=== PATIENT | female | born 1940 | race Caucasian/White ===

== ENCOUNTER → 2016-07-26 | Outpatient (CLI) | payer MEDICARE ==
[2016-07-26 12:02] LABS: EKG EKG PERFORMED
[2016-07-26 12:28] LABS: Basophils # (A) 0.1 k/uL (0-0.2); Basophils % (A) 1 %; CH 29.2; CHCM 32.4; Eosinophils # (A) 0.2 k/uL (0-0.7); Eosinophils % (A) 3 %; HCT 43.8 % (34.0-46.0); HDW 2.49; HGB 13.9 gm/dL (11.4-16.0); Luc # (Auto) 0.23; Luc % (Auto) 3; Lymphocytes # (A) 1.4 k/uL (1.0-4.8); Lymphocytes % (A) 20 %; MCH 28.8 pg (25.0-35.0); MCHC 31.7 g/dL (31.0-37.0); MCV 90.7 fL (80.0-100.0); Mean Platelet Volume 7.1; Monocytes # (A) 0.5 k/uL (0-1.0); Monocytes % (A) 7 %; Neutrophils # (A) 4.6 k/uL (1.3-7.7); Neutrophils % (A) 67 %; RBC 4.83 m/uL (3.80-5.40); RDW 14.4 % (11.5-15.5); WBC (Perox) 7.18
[2016-07-26 12:36] LABS: INR 1.1 (<1.1); Partial Thromboplastin Time 25.7 sec (22.0-30.0); Prothrombin Time 10.7 sec (9.0-12.0)
[2016-07-26 12:41] LABS: Appearance,Urine Clear (Clear); Bilirubin,Urine Negative (Negative); Glucose,Urine (UA) Negative (Negative); Ketones,Urine Negative (Negative); Leukocyte Esterase,Urine Negative (Negative); Nitrite,Urine Negative (Negative); PH, Urine 6.5 (5.0-8.0); Protein,Urine Negative (Negative); Specific Gravity,Urine 1.002 (1.001-1.035); UA Billing (MACRO vs. MICRO) CHEM; Urobilinogen,Urine <2.0 mg/dL (<2.0)
[2016-07-26 12:50] LABS: ALT 33 U/L (9-52); AST 27 U/L (14-36); Alkaline Phosphatase 81 U/L (38-126); Anion Gap 12 mmol/L; Blood Urea Nitrogen 22 mg/dL (7-17); Calcium 9.3 mg/dL (8.4-10.2); Carbon Dioxide 27 mmol/L (22-30); Chloride 103 mmol/L (98-107); Glucose 81 mg/dL (74-99); Non-African American GFR(MDRD) >60 (>60 ml/min/1.73 sqM); Potassium 4.5 mmol/L (3.5-5.1); Sodium 142 mmol/L (137-145); Total Bilirubin 0.5 mg/dL (0.2-1.3); Total Protein 7.5 g/dL (6.3-8.2)
== END | disposition home or self-care (01) ==
LOC: LABPAT 11:44
PROVIDERS: ATTEND Orthopaedic Surgery
DX: Z01.810 Encounter for preprocedural cardiovascular examination (principal); Z01.812 Encounter for preprocedural laboratory examination
CPT/HCPCS: 80053; 81003; 85025; 85610; 85730; 87070; 93005

== ENCOUNTER 2016-08-10 05:47 | Inpatient (IN) | payer MEDICARE ==
[2016-07-30 15:00] VITALS: BMI 33.7
[~2016-08-10 05:47] MED LIST: ACETAMINOPHEN TAB 500 MG TAB PO ONE; DEXAMETHASONE SOD PHOSPHATE 10 MG/ML 1 ML VIAL IV ONE; FAMOTIDINE 20 MG/2 ML VIAL IV PRN; HYDROmorphone 1 MG/ML 1 ML SYRINGE IVP PRN; LACTATED RINGERS 1,000 ML IV SCH; MELOXICAM 7.5 MG TAB PO ONE; ONDANSETRON 4 MG/2 ML VIAL IVP ONE; TRANEXAMIC ACID 1,000 MG in SODIUM CHLORIDE 0.9% 100 ML IVPB ONE; ceFAZolin 2 GM in SODIUM CHLORIDE 0.9% 100 ML IVPB ONE
[2016-08-10] MEDS ORDERED: ROPIVACAINE 246.25 MG, EPINEPHrine 0.5 MG, KETOROLAC 30 MG, cloNIDine HCL/PF 80 MCG, WA... MISCELLANE ONE ×5 (05:50)
[2016-08-10] MEDS ORDERED: LIDOCAINE 1% 20 ML VIAL (10MG/ML) FOR IV START INTRADERMA ONE (06:54)
[2016-08-10] MEDS: MIDAZOLAM 2 MG/2 ML VIAL IV PRN ×2 (07:05→07:07)
[2016-08-10] MEDS ORDERED: ePHEDrine 50 MG/ML 1 ML AMP ONE (07:24)
[2016-08-10] MEDS ORDERED: MIDAZOLAM 2 MG/2 ML VIAL ONE (07:24)
[2016-08-10] MEDS ORDERED: PROPOFOL 10 MG/ML 20 ML VIAL IV ONE (07:24)
[2016-08-10] MEDS ORDERED: SODIUM CHLORIDE 0.9% 100 ML BAG ONE (07:24)
[2016-08-10] MEDS ORDERED: TRANEXAMIC ACID 1,000 MG/10 ML VIAL ONE (07:24)
[2016-08-10] MEDS ORDERED: fentaNYL (PF) 50 MCG/ML 2 ML AMP ONE (07:24)
[2016-08-10] MEDS ORDERED: ceFAZolin 3,000 MG in SODIUM CHLORIDE 0.9% IRRIGATIO 3,000 ML IRRIGATION ONE (08:02)
[2016-08-10] MEDS ORDERED: LACTATED RINGERS 1,000 ML IV ONE (08:30)
[2016-08-10] MEDS ORDERED: ROPIVACAINE 1,100 MG, SODIUM CHLORIDE 0.9% 330 ML MISCELLANE PRN ×2 (09:00)
--- NOTE | 2016-08-10 09:02 | P.ONQ ---
Anesthesiology Proc Note - PNB - Peripheral Nerve Block Performed Right Adductor Canal Indication: Acute Post-Operative Pain, Requested by physician (Mat Greene) Sedation Type: Sedate with meaningful contact maintained Preparation: Sterile Dressing Position: Supine Catheter: Indwelling Needle Types: On-Q Needle Size: 100mm (4") Needle Gauge: 20 Technique: Ultrasound Injectate: 0.5% Ropivacaine (see comment for volume) (20cc) Blood Aspirated: No Pain Paresthesia on Injection Noted: No Resistance on Injection: Normal Events: Uneventful and Well Tolerated
--- NOTE | 2016-08-10 09:05 | P.OP ---
Date of Procedure: 08/10/16 Preoperative Diagnosis: Severe osteoarthritis right knee Postoperative Diagnosis: Severe osteoarthritis right knee Procedure(s) Performed: Right total knee arthroplasty Implants: Ferrari and Nephew Oxinium femoral component size 4, right Ferrari & Nephew Jacquie II right nonporous tibial baseplate size 3 Ferrari & Nephew size 11 mm Legion XLPE high flexion articular insert, size 3-4 Ferrari & Nephew Jacquie II resurfacing patellar component, 32 mm All components were cemented using Kevan bone cement.. The articulation is ceramic on polyethylene. Anesthesia: spinal Surgeon: Mat Greene Bark Spudder #1: Christi Diallo Estimated Blood Loss (ml): 50 Pathology: other (Bone and cartilage) Condition: stable Disposition: PACU Indications for Procedure: After failure of conservative treatment we discussed the surgical and nonsurgical treatment options at length. Patient wishes to proceed with a total knee arthroplasty. Complications specific to this procedure were discussed at length, including but not limited to infection, bleeding, stiffness , and nerve injury. Patient is aware of all these complications and informed consent was obtained Operative Findings: The operative findings are consistent with severe osteoarthritis of the right knee Description of Procedure: Patient was seen in the preoperative area consent was reviewed and operative site was marked with a skin marker. An adductor canal pain catheter was placed by anesthesia in the preoperative area. Patient was then brought to the operating room and given preoperative antibiotics intravenously. A spinal anesthetic was administered by the anesthesia department. A Mondragon catheter was then placed by the nursing staff. A tourniquet was placed on the upper thigh and the lower extremity was prepped and draped in usual sterile fashion. A gram of transexamic acid was given. A universal timeout was then performed which confirmed the patient's name, surgical site, ALLERGIES, and consent. The lower extremity was then exsanguinated and tourniquet was inflated to 250 mmHg. A standard and anterior midline approach to the knee was performed. The skin and subcutaneous tissue was dissected down to the patellar tendon. A medial parapatellar arthrotomy was then performed. The knee was then extended, the patellar was everted, and the knee was again flexed. Anterior horns of both menisci were excised, and a release was performed to the posterior medial aspect of the knee. On gross visual inspection, there was complete loss of articular cartilage in the medial and patellofemoral joint spaces. There was also significant cartilage damage in the lateral compartment. There were multiple periarticular osteophytes which were then removed with a Ronguer. The femoral canal was then opened with the appropriate drill, and the intramedullary femoral cutting guide was then placed and set for 4 of valgus. The distal femoral cutting block was then pinned in place, and the distal femur was then cut. The cutting block was then removed and the cut was checked for flatness. Next, the sizing guide was then placed and set for 3 external rotation based off of the epicondylar axis and Whitesides line. After the femur was sized, the appropriate 4-in-1 cutting block was then pinned in place. The anterior condyles were cut without notching. The posterior and chamfer cuts were performed while protecting the collateral ligaments. The cutting block was then removed, and the femoral canal was plugged with autologous bone. Attention was then directed to the tibia. The remaining ACL was removed with a Ronguer, and the tibia was then gently subluxed forward with a large bent knee retractor. Any remaining menisci was excised. The posterior lateral corner was cauterized in order to cauterize the lateral geniculate artery. The extra medullary tibial cutting guide was then placed, set for the appropriate rotation , slope, and depth of resection. The proximal tibia cutting guide was then pinned in place. Proximal tibia was then cut and sized. Next trials were then placed with the appropriate-sized insert. The knee was able to fully extend and flex to 130 and was stable throughout all range of motion. The knee was then extended, patella everted. Patella was then measured, and then using an osteotomy guide, the patella was cut at the appropriate level. The patella was then measured and drilled and the patella trial was then placed. The knee was then taken through range of motion with the patella trial and the patella tracked normally. The knee was then extended patella trial was then removed and the patella was everted. Knee was then flexed and lug holes were drilled through the femoral trial and the femoral trial was then removed. The tibial was then exposed, and the tibial broach guide was then pinned in place after it was set for the appropriate rotation to allow for the most coverage without overhang. The tibia was then reamed and broached. The cut surfaces of bone were then irrigated with pulsatile lavage. The posterior structures were injected with the ropivacaine solution. The knee was also irrigated with Irrisept solution. The components were then opened, the cement was mixed, and the components were then cemented in place. The cement was allowed to harden with the knee in full extension. While the cement was hardening, the remaining soft tissues were then injected with a ropivacaine solution, which consisted of 246.25 mg of ropivacaine, 0.5 mg of epinephrine, 30 mg of Toradol, 80 g of clonidine, and 48.45 mL of sterile water, for a total of 100 mL of fluid injected. After the cemented hardened. The tourniquet was released, and hemostasis was obtained. A second gram of transexamic acid was given. The knee was again irrigated. The knee was again taken through range of motion and found to be stable throughout all range of motion of 0-130 , and the patella tracked normally. The fascia was then closed with #2 strata fix suture. The subcutaneous tissue was closed with 3-0 Vicryl and 3-0 strata fix. Dermabond tape was used for the skin and placed with the knee in flexion. The patient was placed in a sterile dressing. Patient was then transferred to recovery room in stable condition. The malt specifications control assistant MERCEDES Petit was required due the complexity surgery and the need for a skilled assisted living assistant. She assisted in positioning, draping , retraction, and closure of the wound.
[2016-08-10] MEDS ORDERED: hydrOXYzine PAMOATE 25 MG CAP PO PRN (09:16)
[2016-08-10] MEDS ORDERED: BISACODYL 10 MG SUPP RECTAL PRN (09:16)
[2016-08-10] MEDS ORDERED: MAGNESIUM HYDROXIDE 2,400 MG/10 ML CUP PO PRN (09:16)
[2016-08-10] MEDS ORDERED: NALOXONE 0.4 MG/ML 1 ML VIAL IV PRN (09:16)
[2016-08-10] MEDS ORDERED: ONDANSETRON 4 MG/2 ML VIAL IVP PRN (09:16)
[2016-08-10] MEDS ORDERED: DIAZEPAM 5 MG TAB PO PRN ×2 (09:16)
[2016-08-10] MEDS ORDERED: HYDROmorphone 1 MG/ML 1 ML SYRINGE IVP PRN ×3 (09:16)
--- NOTE | 2016-08-10 10:15 | XR ---
EXAMINATION TYPE: XR knee limited RT DATE OF EXAM: 08/10/2016 10:07 AM COMPARISON: NONE HISTORY: Postop knee replacement TECHNIQUE: 2 views right knee FINDINGS: No acute fractures are evident post tibial and femoral component placement. Postsurgical ch anges are within the soft tissues. IMPRESSION: 1. No acute fractures post right knee replacement.
[2016-08-10] MEDS: traMADol 50 MG TAB PO PRN (11:57)
[2016-08-10] MEDS: SODIUM CHLORIDE 0.9% 1,000 ML IV SCH (11:59)
--- NOTE | 2016-08-10 13:28 | P.CONS ---
History of Present Illness - Reason for Consult Consult date: 08/10/16 Medical management - History of Present Illness This is a 75-year-old female one of Dr. Mark Vo with a previous medical history significant for hypertension and hypertensive cardiovascular disease, hypothyroidism, history of SVT post-ablation back in 2005, history of breast cancer status post left mastectomy back in 2001, patient underwent left total knee arthroplasty by Dr. Greene in March 2016. Patient is back and underwent a right knee total arthroplasty with Dr. Greene. Patient denies any chest pain, shortness of breath, she has no abdominal pain, nausea, vomiting, she has a peripheral nerve block in her left lower extremity. Review of Systems All systems: negative Constitutional: Denies chills, Denies fever Eyes: denies blurred vision, denies pain Ears, nose, mouth and throat: Denies headache, Denies sore throat Cardiovascular: Denies chest pain, Denies shortness of breath Respiratory: Denies cough Gastrointestinal: Denies abdominal pain, Denies diarrhea, Denies nausea, Denies vomiting Genitourinary: Denies dysuria, Denies hematuria Musculoskeletal: Denies myalgias Integumentary: Denies pruritus, Denies rash Neurological: Denies numbness, Denies weakness Psychiatric: Denies anxiety, Denies depression Endocrine: Denies fatigue, Denies weight change Past Medical History Past Medical History: Asthma, Cancer, Hypertension, Thyroid Disorder Additional Past Medical History / Comment(s): current sinus infection tx, hypothyroid,lt breast CA-no radiation or chemo,intermittent rapid heart rate-no problems since cardiac ablation 2005,urinary leakage History of Any Multi-Drug Resistant Organisms: None Reported Past Surgical History: Back Surgery, Cardiac Ablation, Section, Joint Replacement Additional Past Surgical History / Comment(s): lt mastectomy,3 ,fusion lower back,total lt knee Past Anesthesia/Blood Transfusion Reactions: Family History of Problems w/ Anesthesia, Motion Sickness Additional Past Anesthesia/Blood Transfusion Reaction / Comm: mother and sister have PONV,no hx blood transfusion Past Psychological History: No Psychological Hx Reported Smoking Status: Never smoker Past Alcohol Use History: None Reported Past Drug Use History: None Reported - Past Family History Mother Family Medical History: Congestive Heart Failure (CHF), Coronary Artery Disease (CAD), Diabetes Mellitus Additional Family Medical History / Comment(s): Mother at age 86 from diabetes, coronary artery disease and congestive heart failure. Father Family Medical History: Coronary Artery Disease (CAD), Myocardial Infarction (DE ) Additional Family Medical History / Comment(s): Father at age 73 from myocardial infarction. Brother(s) Family Medical History: No Reported History Additional Family Medical History / Comment(s): Patient has 1 brother with no major medical problems. Sister(s) Family Medical History: Diabetes Mellitus Additional Family Medical History / Comment(s): Patient has 3 sisters. One is prediabetic, second one has gastroparesis and third one is diagnosed with Mni re's disease. Son(s) Family Medical History: No Reported History Additional Family Medical History / Comment(s): She has 2 sons with no major medical problems. Daughter(s) Family Medical History: No Reported History Additional Family Medical History / Comment(s): Patient has one daughter with no major medical problems. Medications and Allergies Home Medications Medication Instructions Recorded Confirmed Type Aspirin EC [Ecotrin Low Dose] 81 mg PO HS 03/16/16 08/10/16 History Calcium + Magnesium 1 tab PO DAILY 03/16/16 08/10/16 History Cholecalciferol [Vitamin D3] 1,000 unit PO DAILY 03/16/16 08/10/16 History Levothyroxine Sodium [Synthroid] 100 mcg PO QAM 03/16/16 08/10/16 History Melatonin 5 mg PO HS 03/16/16 08/10/16 History Multivits-Min/Iron/FA/Lutein 1 tab PO DAILY 03/16/16 08/10/16 History [Centrum Silver Women Tablet] Naproxen Sodium [Aleve] 440 mg PO Q12HR 03/16/16 08/10/16 History amLODIPine [Norvasc] 2.5 mg PO BID 03/16/16 08/10/16 History Sennosides-Docusate Sodium 1 tab PO DAILY 07/30/16 08/10/16 History [Senokot-S] traMADol HCL [Ultram] 50 mg PO Q6HR PRN 07/30/16 08/10/16 History Allergies Allergy/AdvReac Type Severity Reaction Status Date / Time amoxicillin trihydrate AdvReac Nausea & Verified 07/30/16 14:44 [From Augmentin] Vomiting hydrocodone [From [place]] AdvReac Nausea & Verified 07/30/16 14:45 Vomiting potassium clavulanate AdvReac Nausea & Verified 07/30/16 14:44 [From Augmentin] Vomiting Frowqnc-Cpr-Ayt Reductase AdvReac muscle Verified 07/30/16 14:45 Inhibitor pain-states "caused muscle loss" Physical Exam Vitals: Vital Signs Temp Pulse Pulse Resp BP BP Pulse Ox 08/10/16 10:15 76 16 122/57 100 08/10/16 10:00 78 16 128/72 97 08/10/16 09:45 79 16 127/62 98 08/10/16 09:30 81 16 123/59 97 08/10/16 09:16 97.4 F L 80 16 117/56 99 08/10/16 06:23 97.7 F 80 16 149/68 98 Intake and Output 08/09/16 08/10/16 08/10/16 22:59 06:59 14:59 Intake Total 100 1651 Output Total 475 Balance 100 1176 Intake: IV 100 1651 Output: Urine 425 Estimated Blood Loss 50 General appearance: no acute distress, thin - EENT Eyes: Reports anicteric sclerae, Reports PERRLA, Reports normal apperance, Denies ptosis, Denies scleral icterus ENT: Reports hearing grossly normal, Reports normal oropharynx, Denies thrush Ears: bilateral: normal - Neck Neck: Reports normal ROM, Denies rigidity, Denies stridor Carotids: bilateral: upstroke normal Thyroid: bilateral: normal size - Respiratory Respiratory: bilateral: diminished, negative: dullness, rales, rhonchi, wheezing , prolonged expiration, prolonged inspiration - Cardiovascular Rhythm: regular Heart sounds: normal: S1, S2 Abnormal Heart Sounds: Denies systolic murmur, Denies S3 Gallop, Denies S4 Gallop - Gastrointestinal General gastrointestinal: Reports normal bowel sounds, Reports soft, Denies tenderness, Denies umbilical hernia - Integumentary Integumentary: Reports normal, Reports normal turgor - Neurologic Neurologic: CNII-XII intact - Musculoskeletal Musculoskeletal: Reports strength equal bilaterally. Large dressing intact to the right knee. Pain pump is in place to the right knee. - Psychiatric Psychiatric: Reports A&O x's 3, Reports appropriate affect, Reports intact judgment & insight Results CBC & Chem 7: 07/26/16 12:00 07/26/16 11:56 Assessment and Plan Plan: 1. Status post right total knee arthroplasty. Patient was instructed about the usage of incentive spirometer to reduce the incidence of atelectasis and hospital-acquired pneumonia, continue with physical therapy, continue current pain management as outlined by orthopedic surgery, continue current deep venous thrombus prophylaxis aspirin 325 mg orally twice every day for the next 30 days. 2. Hypertension and hypertensive cardiovascular disease. Continue amlodipine 2.5 mg orally twice every day. 3. Hypothyroidism. Continue Synthroid 100 g orally once every day. 4. History of osteoarthritis. Continue current pain management with [place]. 5. History of SVT status post cardiac ablation 2005. 6. History of breast cancer status post left mastectomy back in 2001. 7. DVT prophylaxis. Continue aspirin 325 mg orally twice every day for 30 days. 8[address] you Dr[address] Greene for allowing us to participate in the care of your patient, we will follow the patient along with you. Impression and plan of care have been directed as dictated by the signing physician. Roseanne Edmonds nurse practitioner acting as scribe for signing physician. Time with Patient: Greater than 30
[2016-08-10] MEDS: ceFAZolin 2 GM in SODIUM CHLORIDE 0.9% 100 ML IVPB SCH ×2 (16:02→23:25)
[2016-08-10] MEDS: ASPIRIN 325 MG TAB PO SCH (20:26)
[2016-08-10] MEDS: SENNOSIDES-DOCUSATE SODIUM 1 EACH TAB PO SCH (20:26)
[2016-08-10] MEDS: MELATONIN 5 MG TABLET PO SCH (21:19)
[2016-08-10] MEDS: amLODIPine 2.5 MG TAB PO SCH (21:19)
[2016-08-11] MEDS: SODIUM CHLORIDE 0.9% 1,000 ML IV SCH ×2 (00:19→12:16)
[2016-08-11] MEDS: LEVOTHYROXINE 100 MCG TAB PO SCH (05:36)
[2016-08-11] MEDS: traMADol 50 MG TAB PO PRN ×3 (05:36→17:50)
[2016-08-11 07:22] LABS: Basophils % (A) 0 %; CH 29.1; CHCM 31.9; Eosinophils % (A) 0 %; HCT 35.8 % (34.0-46.0); HDW 2.44; HGB 11.3 gm/dL (11.4-16.0); Luc # (Auto) 0.16; Luc % (Auto) 1; Lymphocytes # (A) 1.3 k/uL (1.0-4.8); Lymphocytes % (A) 11 %; MCH 28.9 pg (25.0-35.0); MCHC 31.5 g/dL (31.0-37.0); MCV 91.6 fL (80.0-100.0); Mean Platelet Volume 7.4; Monocytes # (A) 0.7 k/uL (0-1.0); Monocytes % (A) 6 %; Neutrophils # (A) 9.6 k/uL (1.3-7.7); Neutrophils % (A) 82 %; RDW 14.4 % (11.5-15.5); WBC 11.7 k/uL (3.8-10.6); WBC (Perox) 12.76
[2016-08-11] MEDS: MELOXICAM 7.5 MG TAB PO SCH (08:05)
[2016-08-11] MEDS: amLODIPine 2.5 MG TAB PO SCH ×2 (08:05→20:13)
[2016-08-11] MEDS: ASPIRIN 325 MG TAB PO SCH ×2 (08:05→20:13)
--- NOTE | 2016-08-11 08:22 | P.PN ---
Subjective Principal diagnosis: Status post right total knee arthroplasty This is a pleasant 75-year-old female who is status post right total knee arthroplasty. Today's postoperative day #1. The patient is seen and evaluated at bedside with Dr. Mat Greene. She has been up with physical therapy. Her pain is under fair control. She has no new complaints at this time. Objective - Vital Signs Vital signs: Vital Signs Temp 97.6 F 08/11/16 07:00 Pulse 70 08/11/16 07:00 Resp 17 08/11/16 07:00 BP 124/61 08/11/16 07:00 Pulse Ox 93 L 08/11/16 07:00 Intake & Output 08/10/16 08/11/16 08/11/16 18:59 06:59 18:59 Intake Total 2251 775 Output Total 1575 1000 Balance 676 -225 Weight 75.75 kg Intake: IV 1651 775 Sodium Chloride 0.9% 1, 675 000 ml @ 75 mls/hr IV . [id number] [facility] Rx#:[id number] ceFAZolin 2 gm In Sodium 100 Chloride 0.9% 100 ml @ 100 mls/hr IVPB ONCE ONE Rx#:[id number] Oral 600 Output: Urine 1525 1000 Uretheral (Mondragon) 1100 1000 Estimated Blood Loss 50 Other: Voiding Method Indwelling Catheter Indwelling Catheter Indwelling Catheter - Exam The patient does not appear in acute distress. Alert and orientated 3. Dressing is clean dry and intact. Incision appears fine with no erythema or active drainage. Calf is soft and nontender. Good foot and ankle motion without difficulty. Sensation and circulatory status is intact. - Labs CBC & Chem 7: 08/11/16 06:38 07/26/16 11:56 Labs: Abnormal Lab Results - Last 24 Hours (Table) 08/11/16 Range/Units 06:38 WBC 11.7 H (3.8-10.6) k/uL Hgb 11.3 L (11.4-16.0) gm/dL Neutrophils # 9.6 H (1.3-7.7) k/uL Assessment and Plan (1) Primary osteoarthritis of right knee Status: Acute (2) Status post right knee replacement Status: Acute Plan: 1. Continue with routine postoperative care. 2. Anticoagulation with aspirin. 3. Physical therapy and CPM today. 4. Appreciate input from medicine. 5. Anticipate discharge to home with home care likely tomorrow.
--- NOTE | 2016-08-11 09:19 | P.PN ---
Progress Note - Text The patient is status post right adductor canal catheter placement. The catheter was placed for postoperative pain control, status post total right arthroplasty. Ropivacaine 0.2% is infusing at 8 mLs per hour. The patient has no complaints of right lower extremity numbness or weakness. Patient's VAS score is 0-1 -10. Assessment: Patient's adductor canal catheter is in place and working appropriately. Plan: continue infusion and adjust it as needed.
--- NOTE | 2016-08-11 14:16 | P.PN ---
Subjective This is a 75-year-old female one of Dr. Mark Vo with a previous medical history significant for hypertension and hypertensive cardiovascular disease, hypothyroidism, history of SVT post-ablation back in 2005, history of breast cancer status post left mastectomy back in 2001, patient underwent left total knee arthroplasty by Dr. Greene in March 2016. Patient is back and underwent a right knee total arthroplasty with Dr. Greene. Patient denies any chest pain, shortness of breath, she has no abdominal pain, nausea, vomiting, she has a peripheral nerve block in her left lower extremity. 08/11: Patient denies any new complaints. Her pain is controlled. No nausea or vomiting. On aspirin 325 mg twice daily for DVT prophylaxis. She is anticipating discharge home tomorrow. Objective - Vital Signs Vital signs: Vital Signs Temp 97.6 F 08/11/16 07:00 Pulse 70 08/11/16 07:00 Resp 17 08/11/16 07:00 BP 124/61 08/11/16 07:00 Pulse Ox 93 L 08/11/16 07:00 Intake & Output 08/10/16 08/11/16 08/11/16 18:59 06:59 18:59 Intake Total 2251 775 Output Total 1575 1000 500 Balance 676 -225 -500 Weight 75.75 kg Intake: IV 1651 775 Sodium Chloride 0.9% 1, 675 000 ml @ 75 mls/hr IV . [id number] [facility] Rx#:[id number] ceFAZolin 2 gm In Sodium 100 Chloride 0.9% 100 ml @ 100 mls/hr IVPB ONCE ONE Rx#:[id number] Oral 600 Output: Urine 1525 1000 500 Uretheral (Mondragon) 1100 1000 500 Estimated Blood Loss 50 Other: Voiding Method Indwelling Catheter Indwelling Catheter Indwelling Catheter - Exam General appearance: no acute distress, thin - EENT Eyes: Reports anicteric sclerae, Reports PERRLA, Reports normal apperance, Denies ptosis, Denies scleral icterus ENT: Reports hearing grossly normal, Reports normal oropharynx, Denies thrush Ears: bilateral: normal - Neck Neck: Reports normal ROM, Denies rigidity, Denies stridor Carotids: bilateral: upstroke normal Thyroid: bilateral: normal size - Respiratory Respiratory: bilateral: diminished, negative: dullness, rales, rhonchi, wheezing , prolonged expiration, prolonged inspiration - Cardiovascular Rhythm: regular Heart sounds: normal: S1, S2 Abnormal Heart Sounds: Denies systolic murmur, Denies S3 Gallop, Denies S4 Gallop - Gastrointestinal General gastrointestinal: Reports normal bowel sounds, Reports soft, Denies tenderness, Denies umbilical hernia - Integumentary Integumentary: Reports normal, Reports normal turgor - Neurologic Neurologic: CNII-XII intact - Musculoskeletal Musculoskeletal: Reports strength equal bilaterally. Large dressing intact to the right knee. Pain pump is in place to the right knee. - Psychiatric Psychiatric: Reports A&O x's 3, Reports appropriate affect, Reports intact judgment & insight - Labs CBC & Chem 7: 08/11/16 06:38 07/26/16 11:56 Labs: Abnormal Lab Results - Last 24 Hours (Table) 08/11/16 Range/Units 06:38 WBC 11.7 H (3.8-10.6) k/uL Hgb 11.3 L (11.4-16.0) gm/dL Neutrophils # 9.6 H (1.3-7.7) k/uL Assessment and Plan Plan: 1. Status post right total knee arthroplasty. Patient was instructed about the usage of incentive spirometer to reduce the incidence of atelectasis and hospital-acquired pneumonia, continue with physical therapy, continue current pain management as outlined by orthopedic surgery, continue current deep venous thrombus prophylaxis aspirin 325 mg orally twice every day for the next 30 days. 2. Hypertension and hypertensive cardiovascular disease. Continue amlodipine 2.5 mg orally twice every day. 3. Hypothyroidism. Continue Synthroid 100 g orally once every day. 4. History of osteoarthritis. Continue current pain management with [place]. 5. History of SVT status post cardiac ablation 2005. 6. History of breast cancer status post left mastectomy back in 2001. 7. DVT prophylaxis. Continue aspirin 325 mg orally twice every day for 30 days[address] 8[address] you [address] Greene for allowing us to participate in the care of your patient, we will follow the patient along with you. Discharge plan: Home tomorrow Impression and plan of care have been directed as dictated by the signing physician. Roseanne Edmonds nurse practitioner acting as scribe for signing physician. Time with Patient: Greater than 30
[2016-08-11 15:31] VITALS: RESP 16
[2016-08-11] MEDS: ACETAMINOPHEN TAB 325 MG TAB PO PRN (16:00)
[2016-08-11] MEDS: SENNOSIDES-DOCUSATE SODIUM 1 EACH TAB PO SCH (20:13)
[2016-08-11] MEDS: MELATONIN 5 MG TABLET PO SCH (20:13)
[2016-08-12] MEDS: SODIUM CHLORIDE 0.9% 1,000 ML IV SCH (00:36)
[2016-08-12] MEDS: ACETAMINOPHEN TAB 325 MG TAB PO PRN (04:34)
[2016-08-12] MEDS: traMADol 50 MG TAB PO PRN ×3 (05:47→12:52)
[2016-08-12] MEDS: LEVOTHYROXINE 100 MCG TAB PO SCH (05:47)
[2016-08-12 08:04] VITALS: BP 145/67; PULSE 90; TEMP 97.9
[2016-08-12] MEDS: amLODIPine 2.5 MG TAB PO SCH (08:06)
[2016-08-12] MEDS: MELOXICAM 7.5 MG TAB PO SCH (08:07)
[2016-08-12] MEDS: ASPIRIN 325 MG TAB PO SCH (08:07)
--- NOTE | 2016-08-12 08:27 | P.DS ---
Providers Date of admission: 08/10/16 05:47 Expected date of discharge: 08/12/16 Attending physician: Mat Greene Consults: 08/10/16 09:16 Consult Physician Routine Consulting Provider: Julito Beatty Reason/Comments: medical management Do you want consulting provider notified?: Yes Primary care physician: Mark Vo - Discharge Diagnosis(es) (1) Osteoarthritis of right knee Current Visit: Yes Status: Acute (2) Status post right knee replacement Current Visit: Yes Status: Acute Hospital Course: This is a pleasant 75-year-old female last seen in our office with complaints of right knee pain. Patient has known history of degenerative arthritis of the right knee and presented to discuss options. After discussion and consideration , patient elected to proceed with a total knee arthroplasty of the right knee. The patient was seen preoperatively and medically cleared for surgery by Dr. Mark Vo. The patient was admitted to [facility] and underwent right total knee arthroplasty on 08/10/[address] Mat Greene. The procedure was performed without complications or sequelae. The patient has done well postoperatively. The patient was seen and evaluated at bedside today and denies any new complaints. Pain is reasonably controlled. Dressing is clean dry and intact. Incision looks fine with no erythema or active drainage. Calf is soft and nontender. The patient has full foot and ankle motion without difficulty. Patient's right lower extremity is neurovascular intact. Patient is orthopedically stable for discharge to home today. Pertinent Studies: Laboratory Tests 08/11/16 06:38 WBC 11.7 H RBC 3.90 Hgb 11.3 L Hct 35.8 Patient Condition at Discharge: Stable Plan - Discharge Summary New Discharge Prescriptions: Aspirin 325 mg PO BID #60 tab Sennosides-Docusate Sodium [Senokot-S] 2 tab PO DAILY #60 tablet traMADol HCl [Ultram] 50 - 100 mg PO Q4-6H PRN #90 tab PRN Reason: Pain Discharge Medication List Aspirin EC [Ecotrin Low Dose] 81 mg PO HS 03/16/16 [History] Calcium + Magnesium 1 tab PO DAILY 03/16/16 [History] Cholecalciferol [Vitamin D3] 1,000 unit PO DAILY 03/16/16 [History] Levothyroxine Sodium [Synthroid] 100 mcg PO QAM 03/16/16 [History] Melatonin 5 mg PO HS 03/16/16 [History] Multivits-Min/Iron/FA/Lutein [Centrum Silver Women Tablet] 1 tab PO DAILY [History] Naproxen Sodium [Aleve] 440 mg PO Q12HR 03/16/16 [History] amLODIPine [Norvasc] 2.5 mg PO BID 03/16/16 [History] Sennosides-Docusate Sodium [Senokot-S] 1 tab PO DAILY 07/30/16 [History] traMADol HCL [Ultram] 50 mg PO Q6HR PRN 07/30/16 [History] Aspirin 325 mg PO BID #60 tab 08/11/16 [Rx] Sennosides-Docusate Sodium [Senokot-S] 2 tab PO DAILY #60 tablet 08/11/16 [Rx] traMADol HCl [Ultram] 50 - 100 mg PO Q4-6H PRN #90 tab 08/12/16 [Rx] Follow up Appointment(s)/Referral(s): Mat Greene DO [Doctor of Osteopathic Medicine] - 2 Weeks Ambulatory/Diagnostic Orders: Continuous Passive Motion (CPM) Machine [DME.AMB1] Location: Determined By Patient Activity/Diet/Wound Care/Special Instructions: Walker - has at home CPM - No CPM Home Care - No home care Weightbearing as tolerated with a walker CPM daily Daily dressing changes, keep incision clean and dry [facility] with questions or concerns [phone] Discharge Disposition: HOME WITH HOME HEALTH SERVICES
--- NOTE | 2016-08-12 11:04 | P.PN ---
Progress Note - Text 0715 anesthesia POD 2. Patient is status post right TKR under spinal anesthesia with a right adductor canal catheter placed for postoperative pain relief. 0.2% ropivacaine is infusing at 8 mL per hour and the patient's VAS is 2, 7. Catheter site looks good dressing is intact and dry. We'll continue as before.
--- NOTE | 2016-08-12 12:42 | P.PN ---
Subjective This is a 75-year-old female one of Dr. Mark Vo with a previous medical history significant for hypertension and hypertensive cardiovascular disease, hypothyroidism, history of SVT post-ablation back in 2005, history of breast cancer status post left mastectomy back in 2001, patient underwent left total knee arthroplasty by Dr. Greene in March 2016. Patient is back and underwent a right knee total arthroplasty with Dr. Greene. Patient denies any chest pain, shortness of breath, she has no abdominal pain, nausea, vomiting, she has a peripheral nerve block in her left lower extremity. 08/11: Patient denies any new complaints. Her pain is controlled. No nausea or vomiting. On aspirin 325 mg twice daily for DVT prophylaxis. She is anticipating discharge home tomorrow. 08/12: Patient is scheduled for discharge home today. She is doing well with PT. Objective - Vital Signs Vital signs: Vital Signs Temp 97.9 F 08/12/16 07:00 Pulse 90 08/12/16 08:00 Resp 16 08/12/16 08:00 BP 145/67 08/12/16 07:00 Pulse Ox 92 L 08/12/16 07:00 Intake & Output 08/11/16 08/12/16 08/12/16 18:59 06:59 18:59 Intake Total 720 100 Output Total 800 300 Balance -80 100 -300 Weight 75.75 kg Intake: Oral 720 100 Output: Urine 800 300 Uretheral ([place]) 500 Other: Voiding Method Indwelling Catheter Toilet Toilet # Voids 1 1 - Exam General appearance: no acute distress, thin - EENT Eyes: Reports anicteric sclerae, Reports PERRLA, Reports normal apperance, Denies ptosis, Denies scleral icterus ENT: Reports hearing grossly normal, Reports normal oropharynx, Denies thrush Ears: bilateral: normal - Neck Neck: Reports normal ROM, Denies rigidity, Denies stridor Carotids: bilateral: upstroke normal Thyroid: bilateral: normal size - Respiratory Respiratory: bilateral: diminished, negative: dullness, rales, rhonchi, wheezing , prolonged expiration, prolonged inspiration - Cardiovascular Rhythm: regular Heart sounds: normal: S1, S2 Abnormal Heart Sounds: Denies systolic murmur, Denies S3 Gallop, Denies S4 Gallop - Gastrointestinal General gastrointestinal: Reports normal bowel sounds, Reports soft, Denies tenderness, Denies umbilical hernia - Integumentary Integumentary: Reports normal, Reports normal turgor - Neurologic Neurologic: CNII-XII intact - Musculoskeletal Musculoskeletal: Reports strength equal bilaterally. Large dressing intact to the right knee. Pain pump is in place to the right knee. - Psychiatric Psychiatric: Reports A&O x's 3, Reports appropriate affect, Reports intact judgment & insight - Labs CBC & Chem 7: 08/11/16 06:38 07/26/16 11:56 Assessment and Plan Plan: 1. Status post right total knee arthroplasty. Patient was instructed about the usage of incentive spirometer to reduce the incidence of atelectasis and hospital-acquired pneumonia, continue with physical therapy, continue current pain management as outlined by orthopedic surgery, continue current deep venous thrombus prophylaxis aspirin 325 mg orally twice every day for the next 30 days. 2. Hypertension and hypertensive cardiovascular disease. Continue amlodipine 2.5 mg orally twice every day. 3. Hypothyroidism. Continue Synthroid 100 g orally once every day. 4. History of osteoarthritis. Continue current pain management with [facility]. 5. History of SVT status post cardiac ablation 2005. 6. History of breast cancer status post left mastectomy back in 2001. 7. DVT prophylaxis. Continue aspirin 325 mg orally twice every day for 30 days[address] you [address] Greene for allowing us to participate in the care of your patient, we will follow the patient along with you. Discharge plan: Home Impression and plan of care have been directed as dictated by the signing physician. Roseanne Edmonds nurse practitioner acting as scribe for signing physician. CC: Dr. Mark Vo Time with Patient: Greater than 30
== END 2016-08-12 14:10 | disposition home health service (06) | DRG 470 ==
LOC: 2ORMAIN 05:47 → 3SUR 09:16
PROVIDERS: ADMIT Orthopaedic Surgery; ATTEND Orthopaedic Surgery
PROC: 0SRC0J9 Replacement of Right Knee Joint with Synthetic Substitute, Cemented, Open Approach (ICD-10-PCS; principal; 2016-08-10 07:30)
DX: M17.11 Unilateral primary osteoarthritis, right knee (principal); I11.9 Hypertensive heart disease without heart failure; E03.9 Hypothyroidism, unspecified; J45.909 Unspecified asthma, uncomplicated; M54.16 Radiculopathy, lumbar region; Z85.3 Personal history of malignant neoplasm of breast; Z96.652 Presence of left artificial knee joint; Z79.82 Long term (current) use of aspirin; Z79.899 Other long term (current) drug therapy; Z88.5 Allergy status to narcotic agent; Z88.0 Allergy status to penicillin; Z88.8 Allergy status to other drugs, medicaments and biological substances; Z82.49 Family history of ischemic heart disease and other diseases of the circulatory system
CPT/HCPCS: 85025; 88300; 88305; 88311

== ENCOUNTER → 2017-03-16 | Outpatient (CLI) | payer MEDICARE ==
--- NOTE | 2017-03-17 07:42 | MM ---
Reason for exam: additional evaluation requested from prior study. Last mammogram was performed 1 year ago. History: Patient is postmenopausal, has history of breast cancer at age 61, and had first child at age 31. Malignant mastectomy of the left breast, September 12, 2001. Malignant stereotactic core biopsy of the left breast, August 24, 2001. Core biopsy of the left breast. Took hormonal contraceptives for 1 year 6 months beginning at age 29. Took tamoxifen for 5 years beginning at age 61. Physical Findings: Nurse did not find any significant physical abnormalities on exam. MG 3D Diag Mammo W/Cad RT CC and MLO view(s) were taken of the right breast. Prior study comparison: March 15, 2016, right breast MG 3d diag mammo w/cad RT. February 11, 2015, right breast MG diagnostic mammo RT w CAD. The breast tissue is heterogeneously dense. This may lower the sensitivity of mammography. No significant new findings when compared with previous films. These results were verbally communicated with the patient and result sheet given to the patient on 03/16/17. ASSESSMENT: Negative, BI-RAD 1 RECOMMENDATION: Follow-up diagnostic mammogram of the right breast in 1 month.
== END | disposition home or self-care (01) ==
LOC: RADMAMWWP 15:30
PROVIDERS: ATTEND Family Medicine
DX: Z08 Encounter for follow-up examination after completed treatment for malignant neoplasm (principal); Z85.3 Personal history of malignant neoplasm of breast
CPT/HCPCS: G0206; G0279

== ENCOUNTER → 2018-03-29 | Outpatient (CLI) | payer MEDICARE ==
--- NOTE | 2018-03-30 07:22 | MM ---
Reason for exam: additional evaluation requested from prior study. Last mammogram was performed 1 year ago. History: Patient is postmenopausal, has history of breast cancer at age 61, and had first child at age 31. Malignant mastectomy of the left breast, September 12, 2001. Malignant stereotactic core biopsy of the left breast, August 24, 2001. Core biopsy of the left breast. Took hormonal contraceptives for 1 year 6 months beginning at age 29. Took tamoxifen for 5 years beginning at age 61. Physical Findings: Nurse did not find any significant physical abnormalities on exam. MG 3D Diag Mammo W/Cad RT CC and MLO view(s) were taken of the right breast. Prior study comparison: March 16, 2017, right breast MG 3d diag mammo w/cad RT. March 15, 2016, right breast MG 3d diag mammo w/cad RT. There are scattered fibroglandular densities. No significant new findings when compared with previous films. These results were verbally communicated with the patient and result sheet given to the patient on 03/29/18. ASSESSMENT: Benign, BI-RAD 2 RECOMMENDATION: Follow-up diagnostic mammogram of the right breast in 1 year.
== END | disposition home or self-care (01) ==
LOC: RADMAMWWP 15:12
PROVIDERS: ATTEND Family Medicine
DX: R92.8 Other abnormal and inconclusive findings on diagnostic imaging of breast (principal); Z85.3 Personal history of malignant neoplasm of breast
CPT/HCPCS: 77065; G0279; 77061

== ENCOUNTER → 2019-04-17 | Outpatient (CLI) | payer MEDICARE ==
--- NOTE | 2019-04-18 11:42 | MM ---
Reason for exam: additional evaluation requested from prior study. Last mammogram was performed 1 year and 1 month ago. History: Patient is postmenopausal, has history of breast cancer at age 61, and had first child at age 31. Malignant mastectomy of the left breast, September 12, 2001. Malignant stereotactic core biopsy of the left breast, August 24, 2001. Core biopsy of the left breast. Took hormonal contraceptives for 1 year 6 months beginning at age 29. Took tamoxifen for 5 years beginning at age 61. Physical Findings: Nurse did not find any significant physical abnormalities on exam. MG 3D Diag Mammo W/Cad RT CC, MLO, ML, CC with magnification, and ML with magnification view(s) were taken of the right breast. Prior study comparison: March 29, 2018, right breast MG 3d diag mammo w/cad RT. March 16, 2017, right breast MG 3d diag mammo w/cad RT. There are two grouped calcifications in the upper outer right breast. These results were verbally communicated with the patient and result sheet given to the patient on 04/17/19. ASSESSMENT: Suspicious, BI-RAD 4 RECOMMENDATION: Stereotactic core biopsy of the right breast. (2 sites) Called Dr. Vo's office with mammographic findings and has scheduled an appointment for the patient for 05/17/19 at 12:[address] Molina. Biopsy scheduled for 05/24/19 at 8:00. PRELIMINARY REPORT CALLED AND FAXED TO DR. MOLINA ON 05/18/19.
== END | disposition home or self-care (01) ==
LOC: RADMAMWWP 15:21
PROVIDERS: ATTEND Family Medicine
DX: Z08 Encounter for follow-up examination after completed treatment for malignant neoplasm (principal); Z85.3 Personal history of malignant neoplasm of breast; Z90.12 Acquired absence of left breast and nipple
CPT/HCPCS: 77065; G0279; 77061

== ENCOUNTER → 2019-05-17 | Outpatient (CLI) | payer MEDICARE ==
[2019-05-17 15:12] VITALS: BP 146/73; PULSE 78; RESP 18; TEMP 97.4
--- NOTE | 2019-05-17 16:04 | P.GSHP ---
History of Present Illness H&P Date: 05/17/19 Chief Complaint: history of left breast cancer, abnormal right breast mammogram Kaia is a 78-year-old white female who presents for breast evaluation. She is seen in consultation for Dr. Mark Daly. She is status post a left mastectomy for a left breast cancer in 2001. She states the tumor was small and at that time she did not have any chemo or radiation therapy. She did take tamoxifen for 5 years. She does not feel any masses or lumps in her right breast. A mammogram performed on [id number] revealed 2 areas of calcification for which stereotactic core biopsy were recommended. These are in the upper outer quadrant region of the right breast. The patient denies nipple discharge or skin changes. She denies any pain in her breast. She has not had any surgery in the right breast. She has no history of any infection or trauma to the right breast. Family history: 1. Patient left breast cancer Hormonal history: Menarche: 10 T3P3, breast-fed no, age of first : 31 Menopause: 50 control pills: 2 years Hormones: 2 years Social history: Smoke: Negative Alcohol: Negative Drugs: Negative Social history: 1. 3 C-sections 2. Hemorrhoidectomy 3. Low back surgery fusion 4. Tumor removal from left shoulder benign 5. Nose deviated septum 6. Cardiac ablation 7. Bilateral cataract surgery 8. Bilateral knee surgery Medical history: 1. Hypertension 2. Hypothyroid - Constitutional Constitutional: Denies chills, Denies fever - EENT Comment: bilateral cataract surgery Eyes: denies blurred vision, denies pain Ears: deny: decreased hearing, tinnitus Ears, nose, mouth and throat: Denies headache, Denies sore throat - Breasts Comment: left mastectomy, right abnormal mammogram Breasts: bilateral: as per HPI - Cardiovascular Comment: cardiac ablation follows with cardiology - Respiratory Respiratory: Denies cough, Denies 7 - Gastrointestinal Gastrointestinal: Denies abdominal pain, Denies diarrhea, Denies nausea, Denies vomiting - Genitourinary (Female) Genitourinary: Denies dysuria, Denies hematuria - Menstruation Menstruation: Reports postmenopausal - Musculoskeletal Comment: arthritis, bilateral knee replacement, back surgery - Integumentary Comment: none Integumentary: Reports as per HPI - Neurological Neurological: Denies numbness, Denies weakness - Psychiatric Psychiatric: Denies anxiety, Denies depression - Endocrine Endocrine: Reports as per HPI - Hematologic/Lymphatic Comment: baby aspirin - Allergic/Immunologic Allergic/Immunologic: Reports seasonal allergies Past Medical History Past Medical History: Cancer, Hypertension Additional Past Medical History / Comment(s): hypothyroid. History of Any Multi-Drug Resistant Organisms: None Reported Past Surgical History: Back Surgery, Cardiac Ablation, Section, Joint Replacement Additional Past Surgical History / Comment(s): mastectomy Past Anesthesia/Blood Transfusion Reactions: Family History of Problems w/ Anesthesia, Motion Sickness Additional Past Anesthesia/Blood Transfusion Reaction / Comment(s): mother and sister have PONV,no hx blood transfusion Past Psychological History: No Psychological Hx Reported Smoking Status: Never smoker Past Alcohol Use History: None Reported Past Drug Use History: None Reported - Past Family History Mother Family Medical History: Congestive Heart Failure (CHF), Coronary Artery Disease (CAD), Diabetes Mellitus Additional Family Medical History / Comment(s): Mother at age 86 from diabetes, coronary artery disease and congestive heart failure. Father Family Medical History: Coronary Artery Disease (CAD), Myocardial Infarction ([place]) Additional Family Medical History / Comment(s): Father at age 73 from myocardial infarction. Brother(s) Family Medical History: No Reported History Additional Family Medical History / Comment(s): Patient has 1 brother with no major medical problems. Sister(s) Family Medical History: Diabetes Mellitus Additional Family Medical History / Comment(s): Patient has 3 sisters. One is prediabetic, second one has gastroparesis and third one is diagnosed with Mnire's disease. Son(s) Family Medical History: No Reported History Additional Family Medical History / Comment(s): She has 2 sons with no major medical problems. Daughter(s) Family Medical History: No Reported History Additional Family Medical History / Comment(s): Patient has one daughter with no major medical problems. Medications and Allergies Home Medications Medication Instructions Recorded Confirmed Type Aspirin EC [Ecotrin Low Dose] 81 mg PO HS 03/16/16 05/17/19 History Cholecalciferol [Vitamin D3] 1,000 unit PO DAILY 03/16/16 05/17/19 History Levothyroxine Sodium [Synthroid] 100 mcg PO QAM 03/16/16 05/17/19 History Melatonin 5 mg PO HS 03/16/16 05/17/19 History Multivit-Min/Iron/Folic/Lutein 1 tab PO DAILY 03/16/16 05/17/19 History [Centrum Silver Women Tablet] amLODIPine [Norvasc] 2.5 mg PO DAILY 03/16/16 05/17/19 History Allergies Allergy/AdvReac Type Severity Reaction Status Date / Time hydrocodone [From [place]] AdvReac Nausea & Verified 05/17/19 15:08 Vomiting potassium clavulanate AdvReac Nausea & Verified 05/17/19 15:08 [From Augmentin] Vomiting Eccecef-Wus-Jyu Reductase AdvReac muscle Verified 05/17/19 15:08 Inhibitor pain-states "caused muscle loss" Surgical - Exam Vital Signs Temp Pulse Resp BP Pulse Ox 97.4 F L 78 18 146/73 94 L 05/17/19 15:10 05/17/19 15:10 05/17/19 15:10 05/17/19 15:10 05/17/19 15:10 - General well developed, well nourished, no distress - Eyes normal ocular movement - ENT normal pinna, normal nares, no hearing loss, no congestion - Neck no masses, trachea midline - Respiratory normal expansion, normal respiratory effort, clear to percussion, clear to auscultation - Cardiovascular Rhythm: regular Heart Sounds: normal: S1, S2 - Abdomen Abdomen: soft, non tender, no guarding, no rigid, no rebound - Integumentary well healed scar left chest wall no recurrent cancer - Neurologic no disoriented, no combative - Musculoskeletal normal gait, normal posture - Psychiatric oriented to time, oriented to person, oriented to place, speech is normal, memory intact breast examination: Right breast: Multi-positional exam no dominant masses or nodules of concern Right axilla: No adenopathy of concern Left chest wall: No evidence of recurrent cancer Results mammogram results reviewed Assessment and Plan Assessment: impression: 1. Personal history of left breast cancer, status post mastectomy, no evidence of recurrent cancer 2. Right breast abnormal mammogram 3. Hypertension 4. Hypothyroidism Plan: 1. Stereotactic core biopsy 2 areas of concern in the right breast 2. Continued surveillance to rule out recurrent left breast cancer 3. Medical management of medical conditions I discussed with the patient the findings on her right breast mammogram. We have discussed stereotactic core biopsy including the risks and benefits and need for the biopsy. The patient understands and wishes to proceed. Cc: Dr. Mark Vo Encounter time approximately 25 minutes, 50% of time spent planning and/or counseling Time with Patient: Less than 30
== END ==
LOC: WWCWWP 14:32
PROVIDERS: ATTEND Surgery
DX: Z53.9 Procedure and treatment not carried out, unspecified reason (principal)

== ENCOUNTER → 2019-05-24 | Day surgery (SDC) | payer MEDICARE ==
[2019-05-24 07:29] VITALS: RESP 16
--- NOTE | 2019-05-24 09:05 | P.OP ---
Date of Procedure: 05/24/19 Preoperative Diagnosis: mammographic abnormality right breast two groups of calcifications upper outer right breast after review with Dr. Macias only one area is going to be sampled Postoperative Diagnosis: same Procedure(s) Performed: sterotactic core biopsy right breast Anesthesia: local Surgeon: Amaris Molina Estimated Blood Loss (ml): 1 Pathology: other (breast tissue) Condition: stable Disposition: same day Indications for Procedure: microcalcifications of concern right breast Operative Findings: microcalcifications right breast Description of Procedure: the patient is a 78-year-old white female who had a mammographic abnormality revealing microcalcifications of the right breast. 2 areas were initially seen however after review with the radiologist only 1 areas going to be sample today. The patient understands the risks and benefits and wishes to proceed. The patient was taken to the stereotactic core biopsy room and positioned on the stereotactic biopsy table. A aircraft engine mechanic overhaul film was obtained which revealed the calcifications of concern. The breast was prepped using Betadine. 20 mL of 1% lidocaine was used to anesthetize the area of concern. A CC from above approach was utilized. A 9-gauge vacuum-assisted core rotating biopsy needle was driven to the correct coordinates. The needle was fired. Radiograph revealed the needle was in the correct location. 19 core biopsy specimens were obtained. Radiograph of the specimen revealed calcification in the specimen. A secure marilin Top-bowling ball grader and marker was placed. The patient tolerated procedure in stable condition. Specimen sent to pathology. The patient will follow with Dr. Jason in approximately 10 days.
[2019-05-24 09:12] VITALS: BP 112/67; PULSE 56; TEMP 97.4
--- NOTE | 2019-05-24 10:22 | MM ---
EXAMINATION TYPE: MG stereo VAD BX RT DATE OF EXAM: 05/24/2019 COMPARISON: Diagnostic right mammogram dated 04/17/2019 CLINICAL HISTORY: 4 mm group of calcifications in the upper outer quadrant of the right breast. TECHNIQUE: Stereotactic guided core biopsy of right breast. FINDINGS: The procedure of stereotactic guided core biopsy was explained to the patient. Benefits, alternatives, and risks were discussed. An informed consent was then obtained. Preprocedural timeout was performed. The second group of calcifications reported on the diagnostic mammogram 04/17/2019 and the upper outer quadrant do not persist as a true group on today's examination. One site biopsy was performed in the upper outer quadrant. Additionally a questionable area of distortion was seen on the cc view and spot compression cc view was performed. This mostly dispersed however precautionary ultrasound of the lateral right breast was performed with no sonographic correlate. The shortness pathway for biopsy was chosen. Shortness pathway was CC from above approach. I performed the localization, then surgeon, Dr. Eren Gallagher performed the remainder of the procedure. A vacuum assisted biopsy gun was used to obtain multiple core samples. The patient tolerated the procedure well without any immediate complication. The patient was kept in the radiology department for short stay after the procedure and then discharged home in stable condition. Targeted calcifications are identified in specimen mammogram. Post biopsy mammogram shows the marker to appear in satisfactory position relative to the targeted area of concern on the preprocedure images. IMPRESSION: SUCCESSFUL, UNCOMPLICATED STEREOTACTIC GUIDED CORE BIOPSY OF AREA OF A 4 MM GROUP OF CALCIFICATIONS IN THE UPPER OUTER QUADRANT OF THE RIGHT BREAST, FULL PATHOLOGY RESULTS TO FOLLOW. Pathology Results: Benign RIGHT BREAST (CORE BIOPSIES): Non-proliferative fibrocystic changes with ductal microcalcifications. Recommendation Follow up mammogram of the right breast in 6 months. MARCOS
--- NOTE | 2019-05-24 10:58 | USB ---
Reason for exam: clinical finding. History: Patient is postmenopausal, has history of breast cancer at age 61, and had first child at age 31. Malignant mastectomy of the left breast, September 12, 2001. Malignant stereotactic core biopsy of the left breast, August 24, 2001. Core biopsy of the left breast. Took hormonal contraceptives for 1 year 6 months beginning at age 29. Took tamoxifen for 5 years beginning at age 61. US Breast Limited RT Right limited breast ultrasound including focal area of concern, retroareolar and axilla demonstrates a 0.8 x 0.6 x 0.4cm oval node at 8 o'clock, duct ectasia at the posterior nipple and a 0.9 x 0.8 x 0.4cm axilla node. These results were verbally communicated with the patient and result sheet given to the patient on 05/24/19. ASSESSMENT: Benign, BI-RAD 2 RECOMMENDATION: Stereotactic core biopsy of the right breast.
== END ==
LOC: RADMAMWWP 06:46
PROVIDERS: ATTEND Surgery
DX: N60.11 Diffuse cystic mastopathy of right breast (principal)
CPT/HCPCS: 88305; 19081; 76642; A4648; J2001

== ENCOUNTER → 2019-06-07 | Outpatient (CLI) | payer MEDICARE ==
--- NOTE | 2019-06-07 13:50 | P.PN ---
Subjective Progress Note Date: 06/07/19 Principal diagnosis: Patient status post stereotactic core biopsy right breast Kaia is a 78-year-old white female who is status post irritated core biopsy of the right breast on [id number]. Pathology revealed fibrocystic changes with ductal microcalcifications. She is not complaining of any pain in the breast. She has not had any fever or chills. She does complain of some mild firmness near the area of the biopsy. She is status post left mastectomy in 2001. She did not have any chemo or radiation therapy She took tamoxiphen for 5 years. Objective - Constitutional General appearance: Present: average body habitus - EENT Eyes: Present: EOMI ENT: Present: hearing grossly normal - Neck Neck: Present: normal ROM - Respiratory Respiratory: bilateral: CTA - Cardiovascular Rhythm: regular Heart sounds: normal: S1, S2 - Psychiatric Psychiatric: Present: A&O x's 3, appropriate affect, intact judgment & insight - Additional findings Additional findings: Breast: Mild ecchymosis in the periareolar area Small hematoma at the 12 o'clock position No evidence of infection left chest wall incision clean and dry Assessment and Plan Assessment: Impression: 1. Patient status post stereotactic core biopsy of the right breast on [id number], pathology benign 2. Small hematoma at biopsy site 3. Mild ecchymosis Plan: 1. Repeat right breast mammogram and examination in 6 months time
[2019-06-07 13:58] VITALS: BP 167/85; PULSE 75; RESP 16; TEMP 97.5
== END | disposition home or self-care (01) ==
LOC: WWCWWP 12:46
PROVIDERS: ATTEND Surgery
DX: Z53.9 Procedure and treatment not carried out, unspecified reason (principal)

== ENCOUNTER → 2019-06-15 | Outpatient (CLI) | payer MEDICARE ==
--- NOTE | 2019-06-15 11:10 | P.PN ---
Progress Note - Text Progress Note Date: 06/15/19 Kaia is a 78-year-old white female status post stereotactic core biopsy of the right breast and [id number]. Postoperatively she did well however did develop a small hematoma at the biopsy site. She comes today for reevaluation regarding this. The pathology revealed nonproliferative fibrocystic changes with ductal microcalcifications. He has not had any fever or chills. She is not complaining of pain at the site. Physical exam: Evaluation of the biopsy site reveals approximately 1 x 1.5 cm firmness consistent with a hematoma which is resolving Ecchymosis inferior aspect of the periareolar region on the right Impression: 1. Benign right breast core biopsy 2. Resolving hematoma right breast Plan: 1. Right breast mammogram 6 months with physician exam at that time CC: Dr. Mark Vo
[2019-06-15 11:30] VITALS: BP 136/70; PULSE 76; RESP 18; TEMP 97.3
== END | disposition home or self-care (01) ==
LOC: WWCWWP 10:27
PROVIDERS: ATTEND Surgery
DX: Z53.9 Procedure and treatment not carried out, unspecified reason (principal)

== ENCOUNTER → 2019-08-22 | Outpatient (CLI) | payer MEDICARE ==
--- NOTE | 2019-08-23 06:59 | CT ---
EXAMINATION TYPE: CT wrist RT wo con DATE OF EXAM: 08/22/2019 COMPARISON: None. HISTORY: right wrist pain after fall, displaced radial styloid process fracture per order. CT DLP: 130.7 mGycm Automated exposure control for dose reduction was used. FINDINGS: Overlying fiberglass cast material is seen. There is acute comminuted intra-articular fracture throug h the distal radial meta-epiphysis with multiple small fracture fragments identified extending along the volar and radial surface. Coronal images show extension to the ulnar surface. There is relative s paring of the dorsal surface. Some depression measuring 1 to 2 mm sagittal image 35 is noted. There i s a tiny 2 to 3 mm central bony fragment at this level noted coronal image 22. Distal radial ulnar iam int is intact. Distal ulna intact. Mild to moderate diffuse subcutaneous edema along the dorsal surfa ce Carpal joint spaces are preserved. Moderate to severe narrowing at base of first metacarpal incidenta lly noted with mild to moderate spurring. IMPRESSION: Acute comminuted minimally displaced fracture through the distal radial styloid as detail ed above.
== END | disposition home or self-care (01) ==
LOC: RADCTMAIN 15:17
PROVIDERS: ATTEND Orthopaedic Surgery Hand Surgery
DX: S52.511A Displaced fracture of right radial styloid process, initial encounter for closed fracture (principal)

== ENCOUNTER → 2020-01-23 | Outpatient (CLI) | payer MEDICARE ==
--- NOTE | 2020-01-23 11:48 | MM ---
Reason for exam: additional evaluation requested from prior study. Last mammogram was performed 9 months ago. History: Patient is postmenopausal, has history of breast cancer at age 61, and had first child at age 31. Family history of breast cancer in sister at age 76. Benign MG stereo VAD BX RT of the right breast, May 24, 2019. Malignant mastectomy of the left breast, September 12, 2001. Malignant stereotactic core biopsy of the left breast, August 24, 2001. Core biopsy of the left breast. Took hormonal contraceptives for 1 year 6 months beginning at age 29. Took tamoxifen for 5 years beginning at age 61. Physical Findings: Nurse did not find any significant physical abnormalities on exam. MG 3D Diag Mammo W/Cad RT CC and MLO view(s) were taken of the right breast. Prior study comparison: April 17, 2019, right breast MG 3d diag mammo w/cad RT. March 29, 2018, right breast MG 3d diag mammo w/cad RT. The breast tissue is heterogeneously dense. This may lower the sensitivity of mammography. Previous mammotome biopsy in the right breast. No significant new findings when compared with previous films. These results were verbally communicated with the patient and result sheet given to the patient on 01/23/20. ASSESSMENT: Benign, BI-RAD 2 RECOMMENDATION: Routine screening mammogram of the right breast in 6 months.
== END | disposition home or self-care (01) ==
LOC: RADMAMWWP 11:03
PROVIDERS: ATTEND Surgery
DX: Z08 Encounter for follow-up examination after completed treatment for malignant neoplasm (principal); Z85.3 Personal history of malignant neoplasm of breast
CPT/HCPCS: 77065; G0279; 77061

== ENCOUNTER → 2021-03-10 | Outpatient (CLI) | payer MEDICARE ==
--- NOTE | 2021-03-10 13:26 | MM ---
Reason for exam: screening (asymptomatic). Last mammogram was performed 1 year and 2 months ago. History: Patient is postmenopausal, has history of breast cancer at age 61, and had first child at age 31. Family history of breast cancer in sister at age 76. Benign MG stereo VAD BX RT of the right breast, May 24, 2019. Malignant mastectomy of the left breast, September 12, 2001. Malignant stereotactic core biopsy of the left breast, August 24, 2001. Core biopsy of the left breast. Took hormonal contraceptives for 1 year 6 months beginning at age 29. Took tamoxifen for 5 years beginning at age 61. Physical Findings: A clinical breast exam by your physician is recommended on an annual basis and results should be correlated with mammographic findings. MG 3D Scr [place] Unilateral W/Cad CC and MLO view(s) were taken of the right breast. Prior study comparison: January 23, 2020, right breast MG 3d diag mammo w/cad RT. April 17, 2019, right breast MG 3d diag mammo w/cad RT. The breast tissue is heterogeneously dense. This may lower the sensitivity of mammography. Previous mammotome biopsy in the right breast. There is no discrete abnormality. ASSESSMENT: Negative, BI-RAD 1 RECOMMENDATION: Routine screening mammogram of the right breast in 1 year.
== END | disposition home or self-care (01) ==
LOC: RADMAMWWP 10:23
PROVIDERS: ATTEND Surgery
DX: Z12.31 Encounter for screening mammogram for malignant neoplasm of breast (principal); Z85.3 Personal history of malignant neoplasm of breast; Z80.3 Family history of malignant neoplasm of breast; Z78.0 Asymptomatic menopausal state
CPT/HCPCS: 77067

== ENCOUNTER → 2021-03-20 | Outpatient (CLI) | payer MEDICARE ==
[2021-03-20 11:55] VITALS: BP 128/79; PULSE 71; RESP 12; TEMP 97.8
--- NOTE | 2021-03-20 12:08 | P.PN ---
Subjective Progress Note Date: 03/20/21 Principal diagnosis: left breast cancer Kaia is an 80 -year-old white female who presents for breast evaluation. She is status post a left mastectomy for a left breast cancer in 2001. She states the tumor was small and at that time she did not have any chemo or radiation therapy. She did take tamoxifen for 5 years. She had a benign stero biopsy of the right breast on May 24, 2019. She does not feel any masses or lumps in her right breast. She had a right breast mammogramo on 03-10-21 which was benign BIRAD 1. Family history: Patient left breast cancer sister: breast cancer Hormonal history: Menarche: 10 T3P3, breast-fed no, age of first : 31 Menopause: 50 control pills: 2 years Hormones: 2 years Social history: Smoke: Negative Alcohol: Negative Drugs: Negative Surgical history: 1. 3 C-sections 2. Hemorrhoidectomy 3. Low back surgery fusion 4. Tumor removal from left shoulder benign 5. Nose deviated septum 6. Cardiac ablation 7. Bilateral cataract surgery 8. Bilateral knee surgery 9. left mastectomy Medical history: 1. Hypertension 2. Hypothyroid - Constitutional Constitutional: Denies chills, Denies fever - EENT Comment: bilateral cataract surgery Eyes: denies blurred vision, denies pain Ears: deny: decreased hearing, tinnitus Ears, nose, mouth and throat: Denies headache, Denies sore throat - Breasts Comment: left mastectomy, right abnormal mammogram Breasts: bilateral: as per HPI - Cardiovascular Comment: cardiac ablation follows with cardiology - Respiratory Respiratory: Denies cough - Gastrointestinal Gastrointestinal: Denies abdominal pain, Denies diarrhea, Denies nausea, Denies vomiting - Genitourinary (Female) Genitourinary: Denies dysuria, Denies hematuria - Menstruation Menstruation: Reports postmenopausal - Musculoskeletal Comment: arthritis, bilateral knee replacement, back surgery - Integumentary Comment: none Integumentary: Reports as per HPI - Neurological Neurological: Denies numbness, Denies weakness - Psychiatric Psychiatric: Denies anxiety, Denies depression - Endocrine Endocrine: Reports as per HPI - Hematologic/Lymphatic Comment: baby aspirin - Allergic/Immunologic Allergic/Immunologic: Reports seasonal allergies Objective - Vital Signs Vital signs: Vital Signs Temp 97.8 F 03/20/21 11:49 Pulse 71 03/20/21 11:49 Resp 12 03/20/21 11:49 BP 128/79 03/20/21 11:49 Pulse Ox 96 03/20/21 11:49 Intake & Output 03/19/21 03/20/21 03/20/21 18:59 06:59 18:59 Weight 68.039 kg - Exam BMI 30.3 - Constitutional General appearance: Present: cooperative - EENT Eyes: Present: EOMI ENT: Present: hearing grossly normal - Neck Neck: Present: normal ROM - Respiratory Respiratory: bilateral: CTA - Cardiovascular Rhythm: regular Heart sounds: normal: S1, S2 - Gastrointestinal General gastrointestinal: Present: soft - Integumentary Integumentary: Present: normal turgor - Musculoskeletal Musculoskeletal Comment(s): uses a cane - Psychiatric Psychiatric: Present: A&O x's 3, appropriate affect, intact judgment & insight - Additional findings Additional findings: Breast Exam: BRA: 38C inspection: grade 3 ptosis right breast, left chest wall no recurrent cancer Palpation: Breasts: Multiple positional exam no dominant masses or nodules of concern Right axilla: No adenopathy of concern Left chest wall no evidence of recurrent disease Left axilla: No adenopathy of concern Assessment and Plan Assessment: Impression: 1. 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 Patient uncertain as to when she had her last breast prosthesis Plan: 1. Repeat right breast mammogram in 1 year with physician exam at that time 2. Prescription for prosthesis of the left breast CC: Dr. Michael Benitez
== END ==
LOC: WWCWWP 11:42
PROVIDERS: ATTEND Surgery
DX: C50.912 Malignant neoplasm of unspecified site of left female breast (principal); I10 Essential (primary) hypertension; E03.9 Hypothyroidism, unspecified; Z80.3 Family history of malignant neoplasm of breast; Z90.12 Acquired absence of left breast and nipple; Z88.5 Allergy status to narcotic agent; Z88.1 Allergy status to other antibiotic agents; Z88.8 Allergy status to other drugs, medicaments and biological substances

== ENCOUNTER → 2022-03-19 | Outpatient (CLI) | payer MEDICARE ==
--- NOTE | 2022-03-22 10:07 | MM ---
Reason for Exam: Hx of breast cancer, mastectomy. Last screening mammogram was performed 12 month(s) ago. Patient History: Menarche at age 10. First Full-Term at age 31. Late child-bearing (after 30). Postmenopausal. Breast cancer, age 61. Hormonal Contraceptives for 1 year, 6 months, from age 29 until age 30. Tamoxifen for 5 years from age 61 until age 66. Core Biopsy on the Left side. 05/24/2019, Benign Core Biopsy on the right side. 09/12/2001, Malignant Mastectomy on the left side. 08/24/2001, Malignant Stereotactic Core Biopsy on the left side. Sister had breast cancer, age 76. Prior Study Comparison: 04/17/2019 Right Diagnostic Mammogram, [facility]. 01/23/2020 Right Diagnostic Mammogram, [facility]. 03/10/2021 Bilateral Screening Mammogram, [facility]. Tissue Density: Right: There are scattered fibroglandular densities. Findings: Analyzed By CAD. There is no suspicious group of microcalcifications or new suspicious mass in either breast. Biopsy clip demonstrated within the right breast. No significant change from prior examination. Overall Assessment: Benign, BI-RAD 2 Management: Screening Mammogram of the right breast in 1 year. A clinical breast exam by your physician is recommended on an annual basis and results should be correlated with mammographic findings. Electronically signed and approved by: Nemesio Hills D.O.
== END | disposition home or self-care (01) ==
LOC: RADMAMWWP 11:09
PROVIDERS: ATTEND Surgery
DX: Z12.31 Encounter for screening mammogram for malignant neoplasm of breast (principal); Z78.0 Asymptomatic menopausal state; Z80.3 Family history of malignant neoplasm of breast
CPT/HCPCS: 77067

== ENCOUNTER → 2022-03-25 | Outpatient (CLI) | payer MEDICARE ==
[2022-03-25 12:11] VITALS: BP 122/77; PULSE 70; RESP 16; TEMP 97.6
--- NOTE | 2022-03-25 12:18 | P.PN ---
Subjective Progress Note Date: 03/25/22 Principal diagnosis: left breast cancer left breast cancer Kaia is an 81 -year-old white female who presents for breast evaluation. She is status post a left mastectomy for a left breast cancer in 2001. She states the tumor was small and at that time she did not have any chemo or radiation therapy. She did take tamoxifen for 5 years. She had a benign stero biopsy of the right breast on May 24, 2019. She does not feel any masses or lumps in her right breast. She had a right breast mammogramo on 03-19-22 which was benign BIRAD 1. Patient has noted an area of dry skin at the areolar on the right in the medial aspect. It isn't present all summer and is itching. Family history: Patient left breast cancer sister: breast cancer Hormonal history: Menarche: 10 T3P3, breast-fed no, age of first : 31 Menopause: 50 control pills: 2 years Hormones: 2 years Social history: Smoke: Negative Alcohol: Negative Drugs: Negative Surgical history: 1. 3 C-sections 2. Hemorrhoidectomy 3. Low back surgery fusion 4. Tumor removal from left shoulder benign 5. Nose deviated septum 6. Cardiac ablation 7. Bilateral cataract surgery 8. Bilateral knee surgery 9. left mastectomy Medical history: 1. Hypertension 2. Hypothyroid - Constitutional Constitutional: Denies chills, Denies fever - EENT Comment: bilateral cataract surgery Eyes: denies blurred vision, denies pain Ears: deny: decreased hearing, tinnitus Ears, nose, mouth and throat: Denies headache, Denies sore throat - Breasts Comment: left mastectomy, right abnormal mammogram Breasts: bilateral: as per HPI - Cardiovascular Comment: cardiac ablation follows with cardiology - Respiratory Respiratory: Denies cough - Gastrointestinal Gastrointestinal: Denies abdominal pain, Denies diarrhea, Denies nausea, Denies vomiting - Genitourinary (Female) Genitourinary: Denies dysuria, Denies hematuria - Menstruation Menstruation: Reports postmenopausal - Musculoskeletal Comment: arthritis, bilateral knee replacement, back surgery - Integumentary Comment: none Integumentary: Reports as per HPI - Neurological Neurological: Denies numbness, Denies weakness - Psychiatric Psychiatric: Denies anxiety, Denies depression - Endocrine Endocrine: Reports as per HPI - Hematologic/Lymphatic Comment: baby aspirin - Allergic/Immunologic Allergic/Immunologic: Reports seasonal allergies Objective - Constitutional General appearance: Present: cooperative - EENT ENT: Present: hearing grossly normal - Neck Neck: Present: normal ROM - Respiratory Respiratory: bilateral: CTA - Cardiovascular Heart sounds: normal: S1, S2 - Gastrointestinal General gastrointestinal: Present: soft - Integumentary Integumentary: Present: normal turgor - Musculoskeletal Musculoskeletal: Present: gait normal - Psychiatric Psychiatric: Present: A&O x's 3, appropriate affect, intact judgment & insight - Additional findings Additional findings: Breast Exam: BRA: 38C inspection: grade 3 ptosis right breast, left chest wall no recurrent cancer; area of skin irritation is noted at the medial areolar area of the right breast approximately 4 mm in size Palpation: Breasts: Multiple positional exam no dominant masses or nodules of concern Right axilla: No adenopathy of concern Left chest wall no evidence of recurrent disease Left axilla: No adenopathy of concern Assessment and Plan Assessment: Assessment and Plan Assessment: Impression: 1. 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 2. Irritation of the skin in the areolar region of the right breast approximately 4 mm in size in the medial aspect Plan: 1. Repeat right breast mammogram in 1 year with physician exam at that time 2. Steroid cream to the area of irritation on the right breast 3. Patient will follow-up in approximately 2 weeks if the area has not resolved and a biopsy will be done of this site CC: Dr. Michael Vo
== END ==
LOC: WWCWWP 11:34
PROVIDERS: ATTEND Surgery
DX: C50.912 Malignant neoplasm of unspecified site of left female breast (principal); I10 Essential (primary) hypertension; E03.9 Hypothyroidism, unspecified; Z79.890 Hormone replacement therapy; Z90.12 Acquired absence of left breast and nipple

== ENCOUNTER → 2023-03-24 | Outpatient (CLI) | payer MEDICARE ==
--- NOTE | 2023-03-24 13:56 | MM ---
Reason for Exam: Screening (asymptomatic). Last screening mammogram was performed 12 month(s) ago. Patient History: Menarche at age 10. First Full-Term at age 31. Late child-bearing (after 30). Postmenopausal. Breast cancer, left, age 61. Hormonal Contraceptives for 1 year, 6 months, from age 29 until age 30. Tamoxifen for 5 years from age 61 until age 66. Core Biopsy on the Left side. 05/24/2019, Benign Core Biopsy on the right side. 09/12/2001, Malignant Mastectomy on the left side. 08/24/2001, Malignant Stereotactic Core Biopsy on the left side. Sister had breast cancer, age 76. Prior Study Comparison: 01/23/2020 Right Diagnostic Mammogram, [facility]. 03/10/2021 Bilateral Screening Mammogram, [facility]. 03/19/2022 Right MG 3D scr be[place] unilateral w/cad., [facility]. Tissue Density: Right: The breast tissue is heterogeneously dense. This may lower the sensitivity of mammography. Findings: Right breast biopsy clip. There is no suspicious group of microcalcifications or new suspicious mass. Overall Assessment: Benign, BI-RAD 2 Management: Screening Mammogram of both breasts in [address] [facility] will attempt to contact patient to return for supplemental views and ultrasound if indicated. Patient should continue monthly self-breast exams. A clinical breast exam by your physician is recommended on an annual basis. This exam should not preclude additional follow-up of suspicious palpable abnormalities. Note on Vi scores and lifetime risk: 1. A Vi score greater than 3% is considered moderate risk. If this is the case, consider specialist referral to assess eligibility for a risk reducing agent. 2. If overall lifetime risk for the development of breast cancer is 20% or higher, the patient may qualify for future screening with alternating mammogram and breast MRI. Electronically signed and approved by: Cameron Fontenot DO
== END | disposition home or self-care (01) ==
LOC: RADMAMWWP 12:54
PROVIDERS: ATTEND Surgery
DX: Z12.31 Encounter for screening mammogram for malignant neoplasm of breast (principal); Z85.3 Personal history of malignant neoplasm of breast; Z78.0 Asymptomatic menopausal state; Z80.3 Family history of malignant neoplasm of breast; Z90.12 Acquired absence of left breast and nipple
CPT/HCPCS: 77067

== ENCOUNTER → 2023-03-24 | Outpatient (CLI) | payer MEDICARE ==
[2023-03-24 14:35] VITALS: BP 136/76; PULSE 76; RESP 18; TEMP 97.5
--- NOTE | 2023-03-24 14:43 | P.PN ---
Subjective Progress Note Date: 03/24/23 Principal diagnosis: left breast cancer left breast cancer 2001 Kaia is an 82 -year-old white female who presents for breast evaluation. She is status post a left mastectomy for a left breast cancer in 2001. She states the tumor was small and at that time she did not have any chemo or radiation therapy. She did take tamoxifen for 5 years. She had a benign stero biopsy of the right breast on May 24, 2019. She does not feel any masses or lumps in her right breast. She had a right breast mammogramo on 03-24-23 which was benign BIRAD 2. Patient has noted an area of dry skin at the areolar on the right in the medial aspect which has healed. She still has sternal itching of her right nipple. She is not complaining of any new lumps masses or nodules of concern in either breast. Family history: Patient left breast cancer sister: breast cancer Hormonal history: Menarche: 10 T3P3, breast-fed no, age of first : 31 Menopause: 50 control pills: 2 years Hormones: 2 years Social history: Smoke: Negative Alcohol: Negative Drugs: Negative Surgical history: 1. 3 C-sections 2. Hemorrhoidectomy 3. Low back surgery fusion 4. Tumor removal from left shoulder benign 5. Nose deviated septum 6. Cardiac ablation 7. Bilateral cataract surgery 8. Bilateral knee surgery 9. left mastectomy Medical history: 1. Hypertension 2. Hypothyroid 3. high cholesterol - Constitutional Constitutional: Denies chills, Denies fever - EENT Comment: bilateral cataract surgery Eyes: denies blurred vision, denies pain Ears: deny: decreased hearing, tinnitus Ears, nose, mouth and throat: Denies headache, Denies sore throat - Breasts Comment: left mastectomy, right abnormal mammogram Breasts: bilateral: as per HPI - Cardiovascular Comment: cardiac ablation follows with cardiology - Respiratory Respiratory: Denies cough - Gastrointestinal Gastrointestinal: Denies abdominal pain, Denies diarrhea, Denies nausea, Denies vomiting - Genitourinary (Female) Genitourinary: Denies dysuria, Denies hematuria - Menstruation Menstruation: Reports postmenopausal - Musculoskeletal Comment: arthritis, bilateral knee replacement, back surgery - Integumentary Comment: none Integumentary: Reports as per HPI - Neurological Neurological: Denies numbness, Denies weakness - Psychiatric Psychiatric: Denies anxiety, Denies depression - Endocrine Endocrine: Reports as per HPI - Hematologic/Lymphatic Comment: baby aspirin - Allergic/Immunologic Allergic/Immunologic: Reports seasonal allergies Objective - Vital Signs Vital signs: Vital Signs Temp 97.5 F L 03/24/23 14:29 Pulse 76 03/24/23 14:29 Resp 18 03/24/23 14:29 BP 136/76 03/24/23 14:29 Pulse Ox 94 L 03/24/23 14:29 FiO2 Intake & Output 03/23/23 03/24/23 03/24/23 18:59 06:59 18:59 Weight 74.389 kg - Constitutional General appearance: Present: cooperative - EENT Eyes: Present: EOMI ENT: Present: hearing grossly normal - Neck Neck: Present: normal ROM - Respiratory Respiratory: bilateral: CTA - Cardiovascular Heart sounds: normal: S1, S2 - Gastrointestinal General gastrointestinal: Present: soft - Integumentary Integumentary: Present: normal turgor - Musculoskeletal Musculoskeletal: Present: gait normal - Psychiatric Psychiatric: Present: A&O x's 3, appropriate affect, intact judgment & insight - Additional findings Additional findings: Breast Exam: BRA: 38C inspection: grade 3 ptosis right breast, left chest wall no recurrent cancer; area of skin irritation right nipple areolar region has healed Palpation: Breasts: exam no dominant masses or nodules of concern; area of skin excoriation approximately 4 mm in size 12 o'clock position of the right areolar as healed Right axilla: No adenopathy of concern Left chest wall no evidence of recurrent disease Left axilla: No adenopathy of concern Assessment and Plan Assessment: Impression: 1. 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 2. Irritation of the skin in the areolar region of the right breast approxima tely 4 mm in size in the 12 Oclock area Plan: 1. Repeat right breast mammogram in March 2024 with physician exam at that time CC: Michael Benitez
== END ==
LOC: WWCWWP 12:51
PROVIDERS: ATTEND Surgery
DX: Z12.31 Encounter for screening mammogram for malignant neoplasm of breast (principal); E03.9 Hypothyroidism, unspecified; E78.00 Pure hypercholesterolemia, unspecified; I10 Essential (primary) hypertension; L24.9 Irritant contact dermatitis, unspecified cause; Z80.3 Family history of malignant neoplasm of breast; Z85.3 Personal history of malignant neoplasm of breast; Z90.12 Acquired absence of left breast and nipple; Z88.5 Allergy status to narcotic agent; Z88.8 Allergy status to other drugs, medicaments and biological substances; Z79.890 Hormone replacement therapy; Z79.82 Long term (current) use of aspirin; Z79.899 Other long term (current) drug therapy

== ENCOUNTER → 2024-03-29 | Outpatient (CLI) | payer MEDICARE ==
--- NOTE | 2024-03-30 19:53 | MM ---
Reason for Exam: Hx of breast cancer, mastectomy. Last screening mammogram was performed 12 month(s) ago. Patient History: Menarche at age 10. First Full-Term at age 31. Late child-bearing (after 30). Postmenopausal. Breast cancer, left, age 61. Hormonal Contraceptives for 1 year, 6 months, from age 29 until age 30. Tamoxifen for 5 years from age 61 until age 66. Core Biopsy on the Left side. 05/24/2019, Benign Core Biopsy on the right side. 09/12/2001, Malignant Mastectomy on the left side. 08/24/2001, Malignant Stereotactic Core Biopsy on the left side. Sister had breast cancer, age 76. Prior Study Comparison: 03/10/2021 Bilateral Screening Mammogram, [facility]. 03/19/2022 Right MG 3D scr [place] unilateral w/cad., [facility]. 03/24/2023 Right MG 3D scr [place] unilateral w/cad., [facility]. Tissue Density: Right: There are scattered areas of fibroglandular density. Findings: Microclip 11:00 right breast from prior biopsy. There is no suspicious group of microcalcifications or new suspicious mass in either breast. Overall Assessment: Benign, BI-RAD 2 Management: Screening Mammogram of the right breast in 1 year. . Patient should continue monthly self-breast exams. A clinical breast exam by your physician is recommended on an annual basis. This exam should not preclude additional follow-up of suspicious palpable abnormalities. [facility], , 03/30/2024 7:50 PM. Electronically signed and approved by: Ailyn Turner M.D. Radiologist
== END | disposition home or self-care (01) ==
LOC: RADMAMWWP 15:54
PROVIDERS: ATTEND Surgery
CPT/HCPCS: 77067